=== PATIENT | female | born 1970 | race Caucasian/White ===

== ENCOUNTER 2017-02-12 20:27 | Emergency (ER) | payer MEDICAID, OTHER ==
[2017-02-12] MEDS ORDERED: Diazepam 5 MG Tab PO ONE (20:42)
[2017-02-12] MEDS ORDERED: Acetaminophen/oxyCODONE 325-5 MG Tab PO ONE (20:42)
[2017-02-12] MEDS ORDERED: Ketorolac 60 MG/2 ML SDV IM ONE (20:42)
[2017-02-12 20:56] VITALS: BP 173/98
--- NOTE | 2017-02-12 20:57 | EDM.PDOC ---
ED HPI GENERAL MEDICAL PROBLEM - General Chief Complaint: Back Pain or Injury Stated Complaint: BACK PAIN Time Seen by Provider: 02/12/17 20:48 Source of Information: Reports: Patient History Limitations: Reports: No Limitations - History of Present Illness INITIAL COMMENTS - FREE TEXT/NARRATIVE: PT STATES SHE HAS CHRONIC BACK PAIN SINCE JUN AFTER INJURING BACK AT WORK. WOKE THIS AM AFTER EXTENSIVE WALKING YESTERDAY AND BACK HURTS. DENIES FLANK PAIN, FEVER, SADDLE ANESTHESIA, BOWEL OR URINARY INCONT, DYSURIA, N/V/D, OR SPECIFIC REINJURY. Onset: Today Duration: Chronic Location: Reports: Back Quality: Reports: Ache Severity: Moderate Improves with: Reports: None Worsens with: Reports: Movement Context: Reports: Activity Associated Symptoms: Reports: No Other Symptoms - Related Data Allergies Allergy/AdvReac Type Severity Reaction Status Date / Time No Known Drug Allergies Allergy Other Verified 02/12/17 20:49 Home Meds: Home Meds Cyclobenzaprine [Flexeril] 10 mg PO TID PRN 02/12/17 [History] Hydrocodone/Acetaminophen [Hydrocodon-Acetaminophen 5-325] 5 mg PO TID PRN 02/12 [History] Ibuprofen 800 mg PO Q8H PRN 02/12/17 [History] Venlafaxine HCl [Venlafaxine ER] 150 mg PO DAILY 02/12/17 [History] ED ROS GENERAL - Review of Systems Review Of Systems: ROS reveals no pertinent complaints other than HPI. Constitutional: Reports: No Symptoms HEENT: Reports: No Symptoms Respiratory: Reports: No Symptoms Cardiovascular: Reports: No Symptoms Endocrine: Reports: No Symptoms GI/Abdominal: Reports: No Symptoms : Reports: No Symptoms Musculoskeletal: Reports: Back Pain, Muscle Pain, Muscle Stiffness. Denies: Leg Pain Skin: Reports: No Symptoms Neurological: Reports: No Symptoms Psychiatric: Reports: No Symptoms Hematologic/Lymphatic: Reports: No Symptoms Immunologic: Reports: No Symptoms ED EXAM,LOWER BACK PAIN/INJURY - Physical Exam Exam: See Below Exam Limited By: No Limitations General Appearance: Alert, WD/WN, No Apparent Distress Throat/Mouth: Normal Inspection, Normal Oropharynx, No Airway Compromise Head: Atraumatic, Normocephalic Neck: Normal Inspection Respiratory/Chest: No Respiratory Distress GI/Abdominal: Normal Bowel Sounds, Soft, Non-Tender Back Exam: Normal Inspection, Decreased Range of Motion, Muscle Spasm, Paraspinal Tenderness. No: CVA Tenderness (L), CVA Tenderness (R), Vertebral Tenderness Extremities: Normal Inspection, Normal Range of Motion, Non-Tender, No Pedal Edema Neurological: Alert, Normal Mood/Affect, Normal Dorsiflexion, Normal Plantar Flexion, No Motor/Sensory Deficits, Oriented x 3 Psychiatric: Normal Affect, Normal Mood Skin Exam: Warm, Dry, Intact, Normal Color, No Rash Course - Orders/Labs/Meds Meds: Medications Discontinued Medications Generic Name Dose Route Start Last Admin Trade Name Godfrey PRN Reason Stop Dose Admin Diazepam 10 mg 02/12/17 20:42 Valium. PO 02/12/17 20:43 ONETIME ONE Ketorolac Tromethamine 60 mg 02/12/17 20:42 Toradol IM 02/12/17 20:43 ONETIME ONE Oxycodone/Acetaminophen 1 tab 02/12/17 20:42 Percocet 325-5 Mg PO 02/12/17 20:43 ONETIME ONE - Re-Assessments/Exams Free Text/Narrative Re-Assessment/Exam: 02/12/17 21:12 PT AFEBRILE, NONTOXIC APPEARING, VSS, PAIN SOMEWHAT RELIEVED. WILL GIVE ORTHO REFERRAL Departure - Departure Time of Disposition: 21:16 Disposition: Home, Self-Care 01 Condition: Good Clinical Impression: Back pain Qualifiers: Back pain location: low back pain Chronicity: chronic Back pain laterality: bilateral Sciatica presence: without sciatica Qualified Code(s): M54.5 - Low back pain; G89.29 - Other chronic pain Lumbar strain Qualifiers: Encounter type: initial encounter Qualified Code(s): S39.012A - Strain of muscle, fascia and tendon of lower back, initial encounter - Discharge Information Instructions: Back Injury Prevention, [id number], Back Pain, Adult, Easy-to- Read, Chronic Back Pain Referrals: Twila Hall PA-C [Physician] - Angel Yadav MD [Physician] - Forms: ED Department Discharge Additional Instructions: FOLLOW UP WITH PCP IN NEXT 2-3 DAYS. RETURN TO ER SOONER IF SYMPTOMS CONTINUE - Assessment/Plan Assessment:: LOW BACK PAIN Plan: F/U WITH PCP
== END 2017-02-12 21:45 | disposition home or self-care (01) ==
LOC: KA.ED 20:27
DX: S39.012A Strain of muscle, fascia and tendon of lower back, initial encounter (principal); Z79.899 Other long term (current) drug therapy; X50.1XXA Overexertion from prolonged static or awkward postures, initial encounter
CPT/HCPCS: 96372; 99283; A9270; J1885

== ENCOUNTER 2017-04-29 12:32 | Emergency (ER) | payer MEDICAID ==
[2017-04-29 12:54] VITALS: BP 122/82
[2017-04-29] MEDS ORDERED: Ketorolac 60 MG/2 ML SDV IM ONE (13:38)
[2017-04-29] MEDS ORDERED: diphenhydrAMINE 50 MG/ML SDV IM ONE (13:38)
--- NOTE | 2017-04-29 13:44 | EDM.PDOC ---
ED HPI GENERAL MEDICAL PROBLEM - General Chief Complaint: General Stated Complaint: DEPRESSION Time Seen by Provider: 04/29/17 13:15 Source of Information: Reports: Patient History Limitations: Reports: No Limitations - History of Present Illness INITIAL COMMENTS - FREE TEXT/NARRATIVE: 46 YO WF presents to clinic complaining of feeling "overwhelmed" due to recent health concerns of her granddaughter. Pt reports she feels like her depression/ anxiety medication isn't working anymore. Pt reports she took her effexor and xanax today and still "feels sad". Pt denies any suicidal/homicidal idealization. Pt denies any auditory/visual hallucinations. Pt is Alert and oriented x 4. Pt reports she has a mild headache from all her crying and is requesting something for her pain. Pt denies any history of suicide attempt. Pt denies any hospitalizations for depression. Pt has family member at the bedside and states she has a good support system at home. Pt states she tried to get into the clinic today but felt too overwhelmed to wait for appointment time prompting ER visit. Pt states she feels better currently. Onset Date: 04/27/17 Duration: Day(s): (2), Chronic Location: Reports: Head, Generalized Quality: Reports: Ache Severity: Mild Improves with: Reports: None Worsens with: Reports: None Associated Symptoms: Reports: No Other Symptoms - Related Data Allergies Allergy/AdvReac Type Severity Reaction Status Date / Time No Known Drug Allergies Allergy Other Verified 04/29/17 12:54 Home Meds: Home Meds Hydrocodone/Acetaminophen [Hydrocodon-Acetaminophen 5-325] 5 mg PO TID PRN 02/12 [History] Ibuprofen 800 mg PO Q8H PRN 02/12/17 [History] Venlafaxine HCl [Venlafaxine ER] 225 mg PO DAILY 02/12/17 [History] ALPRAZolam [Xanax] 0.25 mg PO TID PRN 04/29/17 [History] 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: has 2 living children Musculoskeletal History: Reports: Back Pain, Chronic, Other (See Below) Other Musculoskeletal History: gets epidural injections Psychiatric History: Reports: Anxiety, Depression Endocrine/Metabolic History: Reports: Obesity/BMI 30+ - Past Surgical History GI Surgical History: Reports: Cholecystectomy Female Surgical History: Reports: Breast Reduction, Hysterectomy Social & Family History - Family History Family Medical History: Noncontributory - Tobacco Use Smoking Status *Q: Never Smoker Second Hand Smoke Exposure: No - Caffeine Use Caffeine Use: Reports: Soda Caffeine Use Comment: did not ask - Recreational Drug Use Recreational Drug Use: No ED ROS GENERAL - Review of Systems Review Of Systems: See Below Constitutional: Reports: No Symptoms HEENT: Reports: No Symptoms Respiratory: Reports: No Symptoms Cardiovascular: Reports: No Symptoms Endocrine: Reports: No Symptoms GI/Abdominal: Reports: No Symptoms : Reports: No Symptoms Musculoskeletal: Reports: No Symptoms Skin: Reports: No Symptoms Neurological: Reports: Headache Psychiatric: Reports: Anxiety, Depression. Denies: Confusion, Hallucinations, Homicidal Ideation, Suicidal Ideation Hematologic/Lymphatic: Reports: No Symptoms Immunologic: Reports: No Symptoms ED EXAM, GENERAL - Physical Exam Exam: See Below Exam Limited By: No Limitations General Appearance: Alert, WD/WN, No Apparent Distress, Anxious, Mild Distress Eye Exam: Bilateral Eye: EOMI, PERRL Throat/Mouth: Normal Inspection, Normal Lips, Normal Teeth, Normal Gums, Normal Oropharynx, Normal Voice, No Airway Compromise Head: Atraumatic, Normocephalic Neck: Normal Inspection, Supple, Non-Tender, Full Range of Motion Respiratory/Chest: No Respiratory Distress, Lungs Clear, Normal Breath Sounds, No Accessory Muscle Use, Chest Non-Tender Cardiovascular: Normal Peripheral Pulses, Regular Rate, Rhythm, No Edema, No Gallop, No JVD, No Murmur, No Rub GI/Abdominal: Normal Bowel Sounds, Soft, Non-Tender, No Organomegaly, No Distention, No Abnormal Bruit, No Mass Back Exam: Normal Inspection, Full Range of Motion, NT Extremities: Normal Inspection, Normal Range of Motion, Non-Tender, Normal Capillary Refill, No Pedal Edema Neurological: Alert, Oriented, CN II-XII Intact, Normal Cognition, Normal Gait, Normal Reflexes, No Motor/Sensory Deficits Psychiatric: Normal Affect, Anxious, Depressed Mood, Tearful Skin Exam: Warm, Dry, Intact, Normal Color, No Rash Lymphatic: No Adenopathy Course - Vital Signs Last Recorded V/S: Last Vital Signs Temp 36.4 C 04/29/17 12:49 Pulse 114 H 04/29/17 12:49 Resp 20 04/29/17 12:49 BP 122/82 04/29/17 12:49 Pulse Ox 95 04/29/17 12:49 - Orders/Labs/Meds Orders: Active Orders 24 hr Category Date Time Status Ketorolac [Toradol] Med 04/29/17 13:38 Once 60 mg IM ONETIME ONE diphenhydrAMINE [Benadryl] Med 04/29/17 13:38 Once 50 mg IM ONETIME ONE Departure - Departure Time of Disposition: 13:49 Disposition: Home, Self-Care 01 Condition: Good Clinical Impression: Situational depression - Discharge Information Instructions: Panic Attacks Referrals: Twila Hall PA-C [Primary Care Provider] - - My Orders Last 24 Hours: My Active Orders 04/29/17 13:38 Ketorolac [Toradol] 60 mg IM ONETIME ONE diphenhydrAMINE [Benadryl] 50 mg IM ONETIME ONE - Assessment/Plan Last 24 Hours: My Active Orders 04/29/17 13:38 Ketorolac [Toradol] 60 mg IM ONETIME ONE diphenhydrAMINE [Benadryl] 50 mg IM ONETIME ONE Assessment:: 1. chronic anxiety/depression 2. generalized headache 3. situational depression Plan: 1. follow up with Twila Hall next week 2. continue current medication schedule 3. recommending counselling for situational depression
== END 2017-04-29 14:17 | disposition home or self-care (01) ==
LOC: KA.ED 12:32
DX: F43.21 Adjustment disorder with depressed mood (principal)
CPT/HCPCS: 96372; 99283; J1200; J1885

== ENCOUNTER 2018-02-08 17:58 | Observation (INO) | payer MEDICAID ==
[2018-02-08] MEDS ORDERED: Nitroglycerin 0.4 MG Tab.SL SL PRN (18:14)
[2018-02-08] MEDS ORDERED: Aspirin 81 MG Tab.Chew PO ONE (18:15)
--- NOTE | 2018-02-08 18:22 | EDM.PDOC ---
ED HPI GENERAL MEDICAL PROBLEM - General Chief Complaint: Cardiovascular Problem Stated Complaint: LEFT SIDED JAW PAIN Time Seen by Provider: 02/08/18 18:10 Source of Information: Reports: Patient History Limitations: Reports: No Limitations - History of Present Illness INITIAL COMMENTS - FREE TEXT/NARRATIVE: 47 YO WF presents to ER complaining of left sided jaw pain which began this am. Pt reports pain is intermittent and lasts for approximately 5 minutes per episode. Pt became concerned with discomfort this afternoon due to associated left arm numbness. Pt denies shortness of breath or chest pain. Pt denies dizziness or lightheadedness, but states she had an episode of diaphoresis earlier today. Pt denies any family history of CAD, denies tobacco use, denies elicit drug use, denies use of caffeine or stimulants, and denies any HRT/BCP. Pt reports for the last 2 weeks she has had mild left sided jaw pain and has been seen by dentist without any evidence of dental infection. Onset: Today Duration: Intermittent, Waxing/Waning Location: Reports: Neck, Upper Extremity, Left Quality: Reports: Ache Severity: Moderate Improves with: Reports: None Worsens with: Reports: None Associated Symptoms: Denies: Chest Pain, Cough, cough w sputum, Fever/Chills, Headaches, Nausea/Vomiting, Shortness of Breath, Syncope Left Oral/Mouth Pain Score (Numeric/FACES): 8 - Related Data Allergies Allergy/AdvReac Type Severity Reaction Status Date / Time No Known Drug Allergies Allergy Other Verified 02/08/18 18:33 Home Meds: Home Meds Hydrocodone/Acetaminophen [Hydrocodon-Acetaminophen 5-325] 5 mg PO TID PRN 02/12 [History] Ibuprofen 800 mg PO Q8H PRN 02/12/17 [History] Venlafaxine HCl [Venlafaxine ER] 225 mg PO DAILY 02/12/17 [History] ALPRAZolam [Xanax] 0.25 mg PO TID PRN 04/29/17 [History] 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 Musculoskeletal History: Reports: Back Pain, Chronic, Other (See Below) Other Musculoskeletal History: gets epidural injections Psychiatric History: Reports: Anxiety, Depression Endocrine/Metabolic History: Reports: Obesity/BMI 30+ - Past Surgical History GI Surgical History: Reports: Cholecystectomy Female Surgical History: Reports: Breast Reduction, Hysterectomy Social & Family History - Family History Family Medical History: Noncontributory - Caffeine Use Caffeine Use: Reports: Soda Caffeine Use Comment: did not ask ED ROS GENERAL - Review of Systems Review Of Systems: See Below Constitutional: Reports: No Symptoms HEENT: Reports: No Symptoms Respiratory: Reports: No Symptoms Cardiovascular: Reports: No Symptoms Endocrine: Reports: No Symptoms GI/Abdominal: Reports: No Symptoms : Reports: No Symptoms Musculoskeletal: Reports: Neck Pain, Arm Pain Skin: Reports: No Symptoms Neurological: Reports: Numbness Psychiatric: Reports: Anxiety Hematologic/Lymphatic: Reports: No Symptoms ED EXAM, GENERAL - Physical Exam Exam: See Below Exam Limited By: No Limitations General Appearance: Alert, WD/WN, No Apparent Distress Eye Exam: Bilateral Eye: EOMI, PERRL Nose: Normal Inspection, Normal Mucosa, No Blood Throat/Mouth: Normal Inspection, Normal Lips, Normal Teeth, Normal Gums, Normal Oropharynx, Normal Voice, No Airway Compromise Head: Atraumatic, Normocephalic Neck: Supple, Full Range of Motion, Tender Lateral Respiratory/Chest: No Respiratory Distress, Lungs Clear, Normal Breath Sounds, No Accessory Muscle Use, Chest Non-Tender Cardiovascular: Normal Peripheral Pulses, Regular Rate, Rhythm, No Edema, No Gallop, No JVD, No Murmur, No Rub GI/Abdominal: Normal Bowel Sounds, Soft, Non-Tender, No Organomegaly, No Distention, No Abnormal Bruit, No Mass Back Exam: Normal Inspection, Full Range of Motion, NT Extremities: Arm Pain Neurological: Alert, Oriented, CN II-XII Intact, Normal Cognition, Normal Gait, Normal Reflexes, No Motor/Sensory Deficits Psychiatric: Normal Affect, Normal Mood Skin Exam: Warm, Dry, Intact, Normal Color, No Rash Lymphatic: No Adenopathy EKG INTERPRETATION EKG Date: 02/08/18 Time: 18:08 Rhythm: NSR Rate (Beats/Min): 96 Whipple: Normal P-Wave: Present QRS: Normal ST-T: Normal QT: Normal Comparison: NA - No Prior EKG Course - Vital Signs Last Recorded V/S: Last Vital Signs Temp 37.2 C 02/08/18 19:23 Pulse 92 02/08/18 19:23 Resp 17 02/08/18 19:23 BP 122/63 02/08/18 19:23 Pulse Ox 95 02/08/18 19:23 - Orders/Labs/Meds Orders: Active Orders 24 hr Category Date Time Status EKG Documentation Completion [RC] ASDIRECTED Care 02/08/18 18:15 Active Chest 1V Frontal [CR] Stat Exams 02/08/18 18:14 Ordered Nitroglycerin [Nitrostat] Med 02/08/18 18:14 Active 0.4 mg SL Q5M PRN EKG 12 Lead [EK] Routine Ther 02/08/18 18:14 Ordered Medication Orders Nitroglycerin (Nitrostat) 0.4 mg SL Q5M PRN PRN Reason: Chest Pain Last Admin: 02/08/18 18:37 Dose: 0.4 mg Labs: Laboratory Tests 02/08/18 02/08/18 02/08/18 Range/Units 18:48 18:48 18:48 WBC 10.60 H (5.00-10.00) 10^3/uL RBC 5.02 (3.80-5.50) 10^6/uL Hgb 14.1 (12.0-16.0) g/dL Hct 43.1 (37.0-47.0) % MCV 85.9 (82.0-92.0) fL MCH 28.1 (27.0-31.0) pg MCHC 32.7 (32.0-36.0) g/dL RDW 14.4 (11.5-14.5) % Plt Count 350 (150-400) 10^3/uL MPV 9.6 (7.4-10.4) fL Immature Gran % (Auto) 0.3 (0.0-5.0) % Neut % (Auto) 56.2 (50.0-70.0) % Lymph % (Auto) 33.9 (20.0-40.0) % Hawkins % (Auto) 7.1 (2.0-8.0) % Eos % (Auto) 2.0 (1.0-3.0) % Baso % (Auto) 0.5 (0.0-1.0) % Immature Gran # (Auto) 0.03 (0.00-0.50) 10^3/uL Neut # (Auto) 5.97 (2.50-7.00) 10^3/uL Lymph # (Auto) 3.59 (1.00-4.00) 10^3/uL Hawkins # (Auto) 0.75 (0.10-0.80) 10^3/uL Eos # (Auto) 0.21 (0.10-0.30) 10^3/uL Baso # (Auto) 0.05 (0.00-0.10) 10^3/uL PT 8.9 (8.9-11.4) SEC INR 0.9 (0.9-1.1) APTT 24.1 (20.8-31.2) SEC Sodium 142 (136-145) mmol/L Potassium 3.6 (3.3-5.3) mmol/L Chloride 101 (98-115) mmol/L Carbon Dioxide 28.7 (21.0-32.0) mmol/L Anion Gap 15.9 H (5-15) mmol/L BUN 15 (6-25) mg/dL Creatinine 1.04 (0.51-1.17) mg/dL Est Cr Clr Drug Dosing 58.37 mL/min Estimated GFR (MDRD) 57 mL/min Glucose 94 mg/dL Calcium 8.7 (8.7-10.3) mg/dL Total Bilirubin 0.3 (0.2-1.0) mg/dL AST 22 (15-37) U/L ALT 35 (12-78) U/L Alkaline Phosphatase 56 (46-116) IU/L Creatine Kinase 98 (26-276) U/L CK-MB (CK-2) 1.10 (0.00-4.30) ng/mL Troponin I 0.04 (0.00-0.070) ng/mL Total Protein 7.1 (6.4-8.2) g/dL Albumin 3.35 (3.00-4.80) g/dL Meds: Medications Generic Name Dose Route Start Last Admin Trade Name Freq PRN Reason Stop Dose Admin Nitroglycerin 0.4 mg 02/08/18 18:14 02/08/18 18:37 Nitrostat SL 0.4 mg Q5M PRN Administration Chest Pain Discontinued Medications Generic Name Dose Route Start Last Admin Trade Name Freq PRN Reason Stop Dose Admin Aspirin 324 mg 02/08/18 18:15 02/08/18 18:19 Aspirin PO 02/08/18 18:16 324 mg ONETIME ONE Administration Morphine Sulfate 4 mg 02/08/18 18:34 02/08/18 18:39 Morphine IVPUSH 02/08/18 18:35 4 mg ONETIME ONE Administration Nitroglycerin 1 gm 02/08/18 18:34 02/08/18 18:47 Nitro-Bid 2% TOP 02/08/18 18:35 1 gm ONETIME ONE Administration - Radiology Interpretation Free Text/Narrative:: CXR- NAD Departure - Departure Time of Disposition: 19:40 Disposition: Refer to Observation Condition: Fair Clinical Impression: Jaw pain, Anginal equivalent Referrals: Twila Hall PA-C [Primary Care Provider] - Forms: ED Department Discharge - My Orders Last 24 Hours: My Active Orders 02/08/18 18:14 Chest 1V Frontal [CR] Stat Nitroglycerin [Nitrostat] 0.4 mg SL Q5M PRN EKG 12 Lead [EK] Routine 02/08/18 18:15 EKG Documentation Completion [RC] ASDIRECTED - Assessment/Plan Last 24 Hours: My Active Orders 02/08/18 18:14 Chest 1V Frontal [CR] Stat Nitroglycerin [Nitrostat] 0.4 mg SL Q5M PRN EKG 12 Lead [EK] Routine 02/08/18 18:15 EKG Documentation Completion [RC] ASDIRECTED Assessment:: 1. left sided jaw pain- atypical chest pain Plan: 1. 23 hour obs- Raegan Brown 2. nitro paste/ASA/Morphine 3. supportive care 4. serial trop I
[2018-02-08] MEDS ORDERED: Morphine 4 MG/ML Syringe IVPUSH ONE (18:34)
[2018-02-08] MEDS ORDERED: Nitroglycerin 2% Oint 1 GM UD Packet TOP ONE (18:34)
[2018-02-08 19:34] LABS: ANION GAP 15.9 mmol/L (5-15)
[2018-02-08] MEDS ORDERED: Morphine 2 MG/ML Syringe IVPUSH PRN (19:43)
[2018-02-08] MEDS ORDERED: Sodium Chloride 0.9% 5 ML Syringe FLUSH PRN (19:43)
[2018-02-08] MEDS: Nitroglycerin 2% Oint 1 GM UD Packet TOP SCH (21:17)
[2018-02-09] MEDS: Nitroglycerin 2% Oint 1 GM UD Packet TOP SCH ×2 (02:42→08:03)
[2018-02-09] MEDS: Acetaminophen 325 MG Tab PO PRN ×2 (03:22→08:10)
[2018-02-09 07:23] VITALS: BP 119/72
[2018-02-09] MEDS ORDERED: Aspirin 325 MG Tab.EC PO SCH (09:00)
--- NOTE | 2018-02-09 10:57 | PCM.DCSUM1 ---
Discharge Summary - Hospital Course Free Text/Narrative:: Mandy is a very pleasant 47 yo WF being discharged from an observation stay - 02/09/18 to r/o cardiac event. She has a hx of HTN on HCTZ that is well controlled and no personal hx of CAD but had a week long history of intermittent left sided jaw pain. She went to the dentist who ruled out any sort of dental infection or problems with her teeth. She states when she came to the ER she had very severe upper and lower dental pain on the left with L arm numbness. "It was very weird" and this startled her so she came to the ER. VSS in ER, EKG NSR with negative CXR. Troponins negative x 4. She was on telemetry with no aberrancy. She states the morphine did seem to help her pain. Pain in the jaw is improved today although she is reporting a ST and left ear pain. Left TM on exam in WNL, there is some left sided submandibular lymphadenopathy that is tender and there is a small amount of exudate on her left tonsil. She will be discharged on Augmentin 1 tab PO BID x 10 days as well as fluconazole 150 mg PO x 1 as she reports yeast infections on antibiotics. Her left arm numbness resolved around 10PM on 02/08/18. Her maternal grandmother from heart failure but no other hx of heart disease. Mandy reports it has been several years since her lipids have been checked. She is a non-smoker, no hormone therapy. She has had a hysterectomy but ovaries remain and she still cycles monthly. Recommend follow-up with PCP, Twila Hall PA-C in 1 week. Recommend lipids and is pain continues cardiolyte exercise stress test. May also need to have x- rays of the jaw to look for other pathology if pain does not improve. She is discharged on antibiotics as noted above, no other medication changes. Discharge diagnoses: 1. Jaw pain, improving, cardiac work-up negative. 2. HTN, stable, well controlled. 3. Pharyngitis, will treat with Augmentin 4. Depression, stable, continue venlafaxine. Diagnosis: Stroke: No Modified [place] Scale: No Signif.Disability Despite Sympt.Able to Carry Out Usual Act./Duties Modified [place] Scale Score: 1 - Discharge Data Discharge Date: 02/09/18 Discharge Disposition: Home, Self-Care 01 Condition: Good - Discharge Diagnosis/Problem(s) (1) Pharyngitis SNOMED Code(s): 942868724 ICD Code: J02.9 - ACUTE PHARYNGITIS, UNSPECIFIED Status: Acute Current Visit: Yes (2) Jaw pain SNOMED Code(s): 865505388 ICD Code: R68.84 - JAW PAIN Status: Acute Current Visit: Yes - Patient Instructions Diet: Regular Diet as Tolerated Activity: As Tolerated Driving: May Drive Today Other/Special Instructions: Follow-up with PCP within 1 week. Recommend AM appointment and come after fasting for 12 hours to have your cholesterol checked. - Discharge Plan *PRESCRIPTION DRUG MONITORING PROGRAM REVIEWED*: Not Applicable *COPY OF PRESCRIPTION DRUG MONITORING REPORT IN PATIENT [place]: Not Applicable Home Medications: Home Meds Hydrocodone/Acetaminophen [Hydrocodon-Acetaminophen 5-325] 5 mg PO TID PRN 02/12 [History] Ibuprofen 800 mg PO Q8H PRN 02/12/17 [History] Venlafaxine HCl [Venlafaxine ER] 225 mg PO DAILY 02/12/17 [History] ALPRAZolam [Xanax] 0.25 mg PO TID PRN 04/29/17 [History] Referrals: Twila Hall PA-C [Primary Care Provider] - - Discharge Summary/Plan Comment DC Time >30 min.: No - General Info Date of Service: 02/09/18 - Patient Data Vitals - Most Recent: Last Vital Signs Temp 98.2 F 02/09/18 07:00 Pulse 88 02/09/18 07:00 Resp 16 02/09/18 07:00 BP 119/72 02/09/18 07:00 Pulse Ox 96 02/09/18 07:00 Weight - Most Recent: 235 lb 7 oz I&O - Last 24 hours: Intake & Output 02/08/18 02/09/18 02/09/18 22:59 06:59 14:59 Intake Total 200 200 Balance 200 200 Lab Results - Last 24 hrs: Laboratory Results - last 24 hr 02/08/18 02/08/18 02/08/18 Range/Units 18:48 18:48 18:48 WBC 10.60 H (5.00-10.00) 10^3/uL RBC 5.02 (3.80-5.50) 10^6/uL Hgb 14.1 (12.0-16.0) g/dL Hct 43.1 (37.0-47.0) % MCV 85.9 (82.0-92.0) fL MCH 28.1 (27.0-31.0) pg MCHC 32.7 (32.0-36.0) g/dL RDW 14.4 (11.5-14.5) % Plt Count 350 (150-400) 10^3/uL MPV 9.6 (7.4-10.4) fL Immature Gran % (Auto) 0.3 (0.0-5.0) % Neut % (Auto) 56.2 (50.0-70.0) % Lymph % (Auto) 33.9 (20.0-40.0) % Sanders % (Auto) 7.1 (2.0-8.0) % Eos % (Auto) 2.0 (1.0-3.0) % Baso % (Auto) 0.5 (0.0-1.0) % Immature Gran # (Auto) 0.03 (0.00-0.50) 10^3/uL Neut # (Auto) 5.97 (2.50-7.00) 10^3/uL Lymph # (Auto) 3.59 (1.00-4.00) 10^3/uL Sanders # (Auto) 0.75 (0.10-0.80) 10^3/uL Eos # (Auto) 0.21 (0.10-0.30) 10^3/uL Baso # (Auto) 0.05 (0.00-0.10) 10^3/uL PT 8.9 (8.9-11.4) SEC INR 0.9 (0.9-1.1) APTT 24.1 (20.8-31.2) SEC Sodium 142 (136-145) mmol/L Potassium 3.6 (3.3-5.3) mmol/L Chloride 101 (98-115) mmol/L Carbon Dioxide 28.7 (21.0-32.0) mmol/L Anion Gap 15.9 H (5-15) mmol/L BUN 15 (6-25) mg/dL Creatinine 1.04 (0.51-1.17) mg/dL Est Cr Clr Drug Dosing 58.37 mL/min Estimated GFR (MDRD) 57 mL/min Glucose 94 mg/dL Calcium 8.7 (8.7-10.3) mg/dL Total Bilirubin 0.3 (0.2-1.0) mg/dL AST 22 (15-37) U/L ALT 35 (12-78) U/L Alkaline Phosphatase 56 (46-116) IU/L Creatine Kinase 98 (26-276) U/L CK-MB (CK-2) 1.10 (0.00-4.30) ng/mL Troponin I 0.04 (0.00-0.070) ng/mL Total Protein 7.1 (6.4-8.2) g/dL Albumin 3.35 (3.00-4.80) g/dL 02/09/18 02/09/18 Range/Units 00:53 07:00 WBC (5.00-10.00) 10^3/uL RBC (3.80-5.50) 10^6/uL Hgb (12.0-16.0) g/dL Hct (37.0-47.0) % MCV (82.0-92.0) fL MCH (27.0-31.0) pg MCHC (32.0-36.0) g/dL RDW (11.5-14.5) % Plt Count (150-400) 10^3/uL MPV (7.4-10.4) fL Immature Gran % (Auto) (0.0-5.0) % Neut % (Auto) (50.0-70.0) % Lymph % (Auto) (20.0-40.0) % Sanders % (Auto) (2.0-8.0) % Eos % (Auto) (1.0-3.0) % Baso % (Auto) (0.0-1.0) % Immature Gran # (Auto) (0.00-0.50) 10^3/uL Neut # (Auto) (2.50-7.00) 10^3/uL Lymph # (Auto) (1.00-4.00) 10^3/uL Sanders # (Auto) (0.10-0.80) 10^3/uL Eos # (Auto) (0.10-0.30) 10^3/uL Baso # (Auto) (0.00-0.10) 10^3/uL PT (8.9-11.4) SEC INR (0.9-1.1) APTT (20.8-31.2) SEC Sodium (136-145) mmol/L Potassium (3.3-5.3) mmol/L Chloride (98-115) mmol/L Carbon Dioxide (21.0-32.0) mmol/L Anion Gap (5-15) mmol/L BUN (6-25) mg/dL Creatinine (0.51-1.17) mg/dL Est Cr Clr Drug Dosing mL/min Estimated GFR (MDRD) mL/min Glucose mg/dL Calcium (8.7-10.3) mg/dL Total Bilirubin (0.2-1.0) mg/dL AST (15-37) U/L ALT (12-78) U/L Alkaline Phosphatase (46-116) IU/L Creatine Kinase (26-276) U/L CK-MB (CK-2) (0.00-4.30) ng/mL Troponin I 0.05 0.04 (0.00-0.070) ng/mL Total Protein (6.4-8.2) g/dL Albumin (3.00-4.80) g/dL Med Orders - Current: Current Medications Acetaminophen (Tylenol) 650 mg PO Q4H PRN PRN Reason: Pain Last Admin: 02/09/18 08:10 Dose: 650 mg Aspirin (Ecotrin) 325 mg PO DAILY [facility] Last Admin: 02/09/18 08:23 Dose: 325 mg Morphine Sulfate (Morphine) 2 mg IVPUSH Q2H PRN PRN Reason: Pain (severe 7-10) Nitroglycerin (Nitro-Bid 2%) 1 gm TOP Q6H [facility] Last Admin: 02/09/18 08:03 Dose: Not Given Sodium Chloride (Syrex Flush) 5 ml FLUSH Q8HR PRN PRN Reason: Keep Vein Open Discontinued Medications Aspirin (Aspirin) 324 mg PO ONETIME ONE Stop: 02/08/18 18:16 Last Admin: 02/08/18 18:19 Dose: 324 mg Morphine Sulfate (Morphine) 4 mg IVPUSH ONETIME ONE Stop: 02/08/18 18:35 Last Admin: 02/08/18 18:39 Dose: 4 mg Nitroglycerin (Nitrostat) 0.4 mg SL Q5M PRN PRN Reason: Chest Pain Last Admin: 02/08/18 18:37 Dose: 0.4 mg Nitroglycerin (Nitro-Bid 2%) 1 gm TOP ONETIME ONE Stop: 02/08/18 18:35 Last Admin: 02/08/18 18:47 Dose: 1 gm - Exam General: Reports: Alert, Oriented, Cooperative, No Acute Distress HEENT: Reports: Other (Small exudate left tonsil. TM's WNL bilaterally.) Neck: Reports: Lymphadenopathy (Submandicular on the left.) Lungs: Reports: Clear to Auscultation, Normal Respiratory Effort Cardiovascular: Reports: Regular Rate, Regular Rhythm, No Murmurs
[2018-02-09] MEDS: Amoxicillin/Clavulanate K 875-125 MG Tab PO SCH ×2 (11:00→11:30)
[2018-02-09] MEDS ORDERED: Amoxicillin/Clavulanate K 875-125 MG Tab PO SCH (11:15)
== END 2018-02-09 11:40 | disposition home or self-care (01) ==
LOC: KA.ED 17:58 → KA.MS 19:41
PROVIDERS: ADMIT Physician Assistant Medical; ATTEND Internal Medicine
DX: R68.84 Jaw pain (principal); J02.9 Acute pharyngitis, unspecified; I10 Essential (primary) hypertension; F32.9 Major depressive disorder, single episode, unspecified; E66.9 Obesity, unspecified; Z68.39 Body mass index [BMI] 39.0-39.9, adult; Z79.899 Other long term (current) drug therapy
CPT/HCPCS: 36415; 71045; 80053; 82550; 82553; 84484; 85025; 85610; 85730; 93005; 96374; 99285; A9270; J2270; G0378

== ENCOUNTER 2019-07-11 12:02 | Emergency (ER) | payer OTHER ==
[2019-07-11 12:22] VITALS: BP 146/75; PULSE 101
--- NOTE | 2019-07-11 12:44 | CR ---
[id number] RAD/RAD Chest PA And Lateral EXAM: FRONTAL AND LATERAL CHEST INDICATION: Chest tightness and cough. COMPARISON: February 08, 2018. DISCUSSION: Minor linear scarring or atelectasis in the lung bases with no definite acute infiltrates. Stable mild elevation of the right hemidiaphragm. Normal heart size. IMPRESSION: 1. No acute findings. Jesus Manuel Holland MD 07/11/19 [id number] Thank you for allowing us to participate in the care of your patient.
[2019-07-11] MEDS ORDERED: Albuterol/Ipratropium 3.0-0.5 MG/3 ML Neb Soln NEB ONE (12:53)
[2019-07-11] MEDS ORDERED: methylPREDNISolone Sodium Succinate 125 MG/2 ML SDV IM ONE (12:53)
--- NOTE | 2019-07-11 12:53 | EDM.PDOC ---
ED HPI GENERAL MEDICAL PROBLEM - General Chief Complaint: General Stated Complaint: SHORT OF BREATH..BAD COUGH Time Seen by Provider: 07/11/19 12:45 Source of Information: Reports: Patient History Limitations: Reports: No Limitations - History of Present Illness INITIAL COMMENTS - FREE TEXT/NARRATIVE: 49 YO WF presents to ER complaining of cough/congestion and chest tightness x 5 days. Pt reports fever/chills earlier in the week. Pt states she has been taking OTC cold medication but states her cough seems to be getting worse. Pt denies shortness of breath but reports some chest tightness. Pt denies nausea/ vomiting, no fever/chills currently. Pr denies history of tobacco use. Pt states her cough is what concerned her and why she came to ED for further evaluation and treatment. Onset Date: 07/07/19 Duration: Day(s): (5) Location: Reports: Generalized Severity: Mild Improves with: Reports: Rest Worsens with: Reports: Breathing Associated Symptoms: Reports: Chest Pain, Cough, Fever/Chills. Denies: Diaphoresis, Headaches, Nausea/Vomiting, Shortness of Breath head Pain Score (Numeric/FACES): 6 - Related Data Allergies Allergy/AdvReac Type Severity Reaction Status Date / Time No Known Drug Allergies Allergy Other Verified 07/11/19 12:22 Home Meds: Home Meds Hydrocodone/Acetaminophen [Hydrocodon-Acetaminophen 5-325] 5 mg PO TID PRN 02/12 [History] Ibuprofen 800 mg PO Q8H PRN 02/12/17 [History] Venlafaxine HCl [Venlafaxine ER] 225 mg PO DAILY 02/12/17 [History] ALPRAZolam [Xanax] 0.25 mg PO TID PRN 04/29/17 [History] Albuterol Sulfate [Proair Hfa] 2 ampule IH Q4H PRN 07/11/19 [History] Oseltamivir [Tamiflu] 75 mg PO BID #6 cap 07/11/19 [Rx] predniSONE [Prednisone] 20 mg PO DAILY #15 tablet 07/11/19 [Rx] Past Medical History Respiratory History: Reports: Asthma Gastrointestinal History: Reports: Cholelithiasis RF MANAGER History: Reports: Other RF MANAGER History: has 3 living children Musculoskeletal History: Reports: Back Pain, Chronic, Other (See Below) Other Musculoskeletal History: gets epidural injections Psychiatric History: Reports: Anxiety, Depression Endocrine/Metabolic History: Reports: Obesity/BMI 30+ Hematologic History: Reports: None Immunologic History: Reports: None Oncologic (Cancer) History: Reports: None - Infectious Disease History Infectious Disease History: Reports: Influenza - Past Surgical History GI Surgical History: Reports: Cholecystectomy Female Surgical History: Reports: Breast Reduction, Hysterectomy Social & Family History - Family History Family Medical History: Noncontributory - Tobacco Use Smoking Status *Q: Never Smoker - Caffeine Use Caffeine Use: Reports: None Caffeine Use Comment: did not ask - Recreational Drug Use Recreational Drug Use: No ED ROS GENERAL - Review of Systems Review Of Systems: See Below Constitutional: Reports: Fever, Chills HEENT: Reports: Rhinitis Respiratory: Reports: Cough Cardiovascular: Reports: No Symptoms Endocrine: Reports: No Symptoms GI/Abdominal: Reports: No Symptoms : Reports: No Symptoms Musculoskeletal: Reports: No Symptoms Skin: Reports: No Symptoms Neurological: Reports: No Symptoms Psychiatric: Reports: No Symptoms Hematologic/Lymphatic: Reports: No Symptoms Immunologic: Reports: No Symptoms ED EXAM, GENERAL - Physical Exam Exam: See Below Exam Limited By: No Limitations General Appearance: Alert, WD/WN, No Apparent Distress Ears: Normal External Exam, Normal Canal, Hearing Grossly Normal, Normal TMs Nose: Normal Inspection, Normal Mucosa, No Blood Throat/Mouth: Normal Inspection, Normal Lips, Normal Teeth, Normal Gums, Normal Oropharynx, Normal Voice, No Airway Compromise Head: Atraumatic, Normocephalic Neck: Normal Inspection, Supple, Non-Tender, Full Range of Motion Respiratory/Chest: No Respiratory Distress, No Accessory Muscle Use, Chest Non- Tender, Wheezing Cardiovascular: Normal Peripheral Pulses, Regular Rate, Rhythm, No Edema, No Gallop, No JVD, No Murmur, No Rub GI/Abdominal: Normal Bowel Sounds, Soft, Non-Tender, No Organomegaly, No Distention, No Abnormal Bruit, No Mass Back Exam: Normal Inspection, Full Range of Motion, NT Extremities: Normal Inspection, Normal Range of Motion, Non-Tender, Normal Capillary Refill, No Pedal Edema Neurological: Alert, Oriented, CN II-XII Intact, Normal Cognition, Normal Gait, Normal Reflexes, No Motor/Sensory Deficits Psychiatric: Normal Affect, Normal Mood Skin Exam: Warm, Dry, Intact, Normal Color, No Rash Lymphatic: No Adenopathy Course - Vital Signs Last Recorded V/S: Last Vital Signs Temp 36.6 C 07/11/19 12:07 Pulse 101 H 07/11/19 12:07 Resp 16 07/11/19 12:07 BP 146/75 H 07/11/19 12:07 Pulse Ox 97 07/11/19 12:53 - Orders/Labs/Meds Orders: Active Orders 24 hr Category Date Time Status RT Aerosol Therapy [RC] ASDIRECTED Care 07/11/19 12:53 Active Meds: Medications Discontinued Medications Generic Name Dose Route Start Last Admin Trade Name Tonyq PRN Reason Stop Dose Admin Albuterol/Ipratropium 3 ml 07/11/19 12:53 07/11/19 13:02 Duoneb 3.0-0.5 Mg/3 Ml NEB 07/11/19 12:54 3 ml ONETIME ONE Administration Methylprednisolone Sodium Succinate 125 mg 07/11/19 12:53 07/11/19 12:55 Solu-Medrol IM 07/11/19 12:54 125 mg ONETIME ONE Administration - Radiology Interpretation Free Text/Narrative:: CXR- NAD - Re-Assessments/Exams Free Text/Narrative Re-Assessment/Exam: 07/11/19 13:38 Pt reports she is feeling better after DuoNeb treatment and cough has improved. Pt denies chest tightness or shortness of breath. Pt is afebrile and tolerating fluids well. Discussed concerns for illness due to exposure to influenza A and B recently. Pt instructed to return to ER for worsening symptoms and follow up in 2 days unless symptoms have completely resolved. Departure - Departure Time of Disposition: 13:39 Disposition: Home, Self-Care 01 Condition: Good Clinical Impression: Influenza, Bronchitis - Discharge Information Prescriptions: Oseltamivir [Tamiflu] 75 mg PO BID #6 cap predniSONE [Prednisone] 20 mg PO DAILY #15 tablet Instructions: Influenza, Adult, [id number], Upper Respiratory Infection, Adult, [id number] Referrals: Twila Hall PA-C [Primary Care Provider] - Forms: ED Department Discharge Additional Instructions: 1. discharge home 2. Tamiflu 75mg twice a day x 5 days 3. albuterol neb every 4 hours and as needed 4. prednisone 60mg a day x 5 days 5. zyrtec 10mg in am 6. follow up in clinic for recheck on 07/13/2019 7. return to ER for worsening symptoms Sepsis Event Note - Evaluation Sepsis Screening Result: No Definite Risk - Focused Exam Vital Signs: Vital Signs Temp Pulse Resp BP Pulse Ox Pulse Ox 07/11/19 12:53 97 07/11/19 12:07 36.6 C 101 H 16 146/75 H 97 Date Exam was Performed: 07/11/19 Time Exam was Performed: 13:27 - My Orders Last 24 Hours: My Active Orders 07/11/19 12:53 RT Aerosol Therapy [RC] ASDIRECTED - Assessment/Plan Last 24 Hours: My Active Orders 07/11/19 12:53 RT Aerosol Therapy [RC] ASDIRECTED Assessment:: 1. Influenza A and B positive 2. Early bronchitis Plan: 1. discharge home 2. Tamiflu 75mg twice a day x 5 days 3. albuterol neb every 4 hours and as needed 4. prednisone 60mg a day x 5 days 5. zyrtec 10mg in am 6. follow up in clinic for recheck on 07/13/2019 7. return to ER for worsening symptoms
[2019-07-11] MEDS ORDERED: Albuterol 8 GM Inhaler INH ONE (13:35)
[2019-07-11] MEDS ORDERED: predniSONE 20 MG Tab PO ONE (13:35)
[2019-07-11] MEDS ORDERED: Oseltamivir 75 MG Cap PO ONE (13:35)
== END 2019-07-11 14:13 | disposition home or self-care (01) ==
LOC: KA.ED 12:02
DX: J11.1 Influenza due to unidentified influenza virus with other respiratory manifestations (principal); F41.9 Anxiety disorder, unspecified; E66.9 Obesity, unspecified; Z68.41 Body mass index [BMI] 40.0-44.9, adult; F32.9 Major depressive disorder, single episode, unspecified; Z79.899 Other long term (current) drug therapy; J45.909 Unspecified asthma, uncomplicated
CPT/HCPCS: 71046; 87804; 94640; 96372; 99285-25; A9270-GY; J2930; J7620-GY